=== PATIENT | female | born 1960 | race Caucasian/White ===

== ENCOUNTER → 2016-10-12 | Outpatient (CLI) | payer BC | LOC: FIMAGING 12:38 | PROVIDERS: ATTEND Obstetrics & Gynecology Gynecology | DX: Z12.31 Encounter for screening mammogram for malignant neoplasm of breast (principal) | CPT/HCPCS: G0202 ==

== ENCOUNTER 2017-10-22 10:34 | Emergency (ER) | payer BC ==
[2017-10-22] MEDS ORDERED: ONDANSETRON 4 MG/2 ML VIAL ONE (10:50)
[2017-10-22] MEDS ORDERED: ONDANSETRON 4 MG/2 ML VIAL IVP ONE (10:51)
[2017-10-22] MEDS ORDERED: NS 1,000 ML IV ONE ×2 (10:52→12:31)
[2017-10-22 12:09] LABS: PLATELET COUNT 174 10^3/uL (150-400)
[2017-10-22 12:31] VITALS: RESP 18; O2SAT 97
[2017-10-22] MEDS ORDERED: MECLIZINE HCL 25 MG TAB PO ONE (12:45)
--- NOTE | 2017-10-22 12:54 | EDPHY ---
H & P Time Seen by Provider: 10/22/17 10:53 HPI/ROS: Chief complaint. Diarrhea, dizziness HPI. 57-year-old female with dizziness off and on this since this morning. She has been off balance and feels like things are spinning. She has had abdominal cramping and diarrhea for approximately 1 month. Some nausea without vomiting. No fever. No travel. Possibly exposed to Infectious Disease from her dog licking her in the face. No similar symptoms previously. No recent URI or fever. No tinnitus or ringing in her ears. No headache. No weakness to arms or legs but somewhat off balance ROS Constitutional. no fever/chills, no weakness Eyes. no problems with vision ENT. no sore throat, no nasal drainage Cardiovascular. no chest pain Respiratory. no shortness of breath, no cough Abdominal. Abdominal cramping and diarrhea . no problems urinating MS. no calf pain/swelling, no neck/back pain, no joint pain Skin. no rash Lymph. no swollen glands Neuro. Spinning type dizziness and off balance when walking Past Medical/Surgical History: SVT Social History: , nonsmoker, no alcohol Smoking Status: Never smoked Physical Exam: General Appearance: Alert well-developed female mild distress vital signs are stable Eyes: Pupils equal and round no pallor or injection. ENT, Mouth: Mucous membranes are moist. Respiratory: There are no retractions, lungs are clear to auscultation. Cardiovascular: Regular rate and rhythm. Gastrointestinal: Abdomen is soft and nontender, no masses, bowel sounds normal. Neurological: Awake and alert, sensory and motor exams grossly normal. Skin: Warm and dry, no rashes. Musculoskeletal: Neck is supple nontender. Extremities symmetrical, full range of motion. Psychiatric: Patient is oriented X 3, there is no agitation. Constitutional: Initial Vital Signs Heart Rate 55 L 10/22/17 10:35 Respiratory Rate 16 10/22/17 10:35 Blood Pressure 109/63 10/22/17 10:35 O2 Sat (%) 98 10/22/17 10:35 O2 Delivery Mode Room Air Allergies/Adverse Reactions: No Known Allergies Allergy (Unverified 10/22/17 10:41) Home Medications: Medication Instructions Recorded Meclizine HCl 25 mg PO Q6-8PRN PRN #10 tablet 10/22/17 Medical Decision Making Procedures: IV normal saline and given 2 L. Meclizine orally. ED Course/Re-evaluation: Re-evaluation at 1:45 p.m.. Patient is stable. She is feeling much better after the meclizine. She feels well enough to go home. She is unable to give us a stool sample. We will liquid per and send her home with equipment to return with stool sample. We discussed treatment plan including criteria for return importance of follow-up and further evaluation. She and her expressed understanding and agreement. Differential Diagnosis: Patient has symptoms of vertigo. She does not have nystagmus but she was off balance and had a spinning sensation. Her symptoms are much better after fluids and meclizine. She has had approximately a month of diarrhea however her laboratory exam is unremarkable. She is unable to produce a stool sample in our department. - Data Points Laboratory Results: Laboratory Results 10/22/17 10:50 10/22/17 10:50 10/22/17 10/22/17 10:50 10:50 WBC 4.74 10^3/uL 10^3/uL (3.80-9.50) RBC 4.58 10^6/uL 10^6/uL (4.18-5.33) Hgb 15.0 g/dL g/dL (12.6-16.3) Hct 42.8 % % (38.0-47.0) MCV 93.4 fL fL (81.5-99.8) MCH 32.8 pg pg (27.9-34.1) MCHC 35.0 g/dL g/dL (32.4-36.7) RDW 11.8 % % (11.5-15.2) Plt Count 174 10^3/uL 10^3/uL (150-400) MPV 11.4 fL fL (8.7-11.7) Neut % (Auto) 48.8 % % (39.3-74.2) Lymph % (Auto) 43.2 % % (15.0-45.0) Beadle % (Auto) 5.5 % % (4.5-13.0) Eos % (Auto) 1.7 % % (0.6-7.6) Baso % (Auto) 0.6 % % (0.3-1.7) Nucleat RBC Rel Count 0.0 % % (0.0-0.2) Absolute Neuts (auto) 2.31 10^3/uL 10^3/uL (1.70-6.50) Absolute Lymphs (auto) 2.05 10^3/uL 10^3/uL (1.00-3.00) Absolute Monos (auto) 0.26 10^3/uL L 10^3/uL (0.30-0.80) Absolute Eos (auto) 0.08 10^3/uL 10^3/uL (0.03-0.40) Absolute Basos (auto) 0.03 10^3/uL 10^3/uL (0.02-0.10) Absolute Nucleated RBC 0.00 10^3/uL 10^3/uL (0-0.01) Immature Gran % 0.2 % % (0.0-1.1) Immature Gran # 0.01 10^3/uL 10^3/uL (0.00-0.10) Sodium 144 mEq/L mEq/L (135-145) Potassium 4.3 mEq/L mEq/L (3.5-5.2) Chloride 105 mEq/L mEq/L (97-110) Carbon Dioxide 27 mEq/l mEq/l (22-31) Anion Gap 12 mEq/L mEq/L (8-16) BUN 23 mg/dL mg/dL (7-23) Creatinine 0.8 mg/dL mg/dL (0.6-1.0) Estimated GFR > 60 Glucose 83 mg/dL mg/dL (70-100) Calcium 9.8 mg/dL mg/dL (8.5-10.4) Medications Given: Discontinued Medications Sodium Chloride (Ns) 1,000 mls @ 0 mls/hr IV ONCE ONE PRN Reason: Wide Open Stop: 10/22/17 10:53 Last Admin: 10/22/17 10:52 Dose: 1,000 mls Sodium Chloride (Ns) 1,000 mls @ 0 mls/hr IV ONCE ONE PRN Reason: Wide Open Stop: 10/22/17 12:32 Last Admin: 10/22/17 12:37 Dose: 1,000 mls Meclizine HCl (Meclizine Hcl) 25 mg PO ONCE ONE Stop: 10/22/17 12:46 Last Admin: 03/12/18 12:59 Dose: 25 mg Ondansetron HCl (Zofran) 4 mg IVP EDNOW ONE Stop: 10/22/17 10:52 Last Admin: 10/22/17 10:53 Dose: 4 mg Departure - Departure Disposition: Home, Routine, Self-Care Clinical Impression: Vertigo Diarrhea Qualifiers: Diarrhea type: unspecified type Qualified Code(s): R19.7 - Diarrhea, unspecified Condition: Good Instructions: Vertigo (ED), Acute Diarrhea (ED) Additional Instructions: Drink plenty of fluids and stay hydrated. Meclizine every 6-8 hours as needed for dizziness. Return with stool sample for analysis. Re-evaluation her regular physician the next 1-2 days if not improving. Referrals: STANFORD DUTTA [Primary Care Provider] - 2-3 days, if not improved Prescriptions: Meclizine HCl 25 mg PO Q6-8PRN PRN #10 tablet PRN Reason: Dizziness
[2017-10-22 13:46] VITALS: BP 111/53; PULSE 59
[2017-10-22 14:02] VITALS: TEMP 98.6
== END 2017-10-22 14:03 | disposition home or self-care (01) ==
DX: R42 Dizziness and giddiness (principal); R19.7 Diarrhea, unspecified
CPT/HCPCS: 96374; J2405

== ENCOUNTER → 2017-11-13 | Outpatient (CLI) | payer BC | LOC: FIMAGING 07:42 | PROVIDERS: ATTEND Obstetrics & Gynecology Gynecology | DX: Z12.31 Encounter for screening mammogram for malignant neoplasm of breast (principal) ==

== ENCOUNTER → 2018-01-16 | Outpatient (CLI) | payer BC | LOC: FIMAGING 09:41 | PROVIDERS: ATTEND Obstetrics & Gynecology Gynecology | DX: Z13.820 Encounter for screening for osteoporosis (principal); M85.89 Other specified disorders of bone density and structure, multiple sites; Z78.0 Asymptomatic menopausal state ==

== ENCOUNTER → 2018-12-26 | Outpatient (CLI) | payer BC | LOC: FIMAGING 08:28 | PROVIDERS: ATTEND Obstetrics & Gynecology Gynecology | DX: Z12.31 Encounter for screening mammogram for malignant neoplasm of breast (principal) ==